=== PATIENT | male | born 1955 | race Two or more races ===

== ENCOUNTER 2023-02-24 06:15 | Day surgery (SDC) | payer OTHER ==
[~2023-02-24] VITALS: Ht 172.7 cm; Wt 81.6 kg
== END 2023-02-24 16:50 | disposition home or self-care (01) ==
LOC: CIR.AMB 06:15 → EDBD 09:45 → CIR.AMB 09:45
PROVIDERS: ATTEND Colon & Rectal Surgery
DX: K57.30 Diverticulosis of large intestine without perforation or abscess without bleeding (principal); D37.8 Neoplasm of uncertain behavior of other specified digestive organs; K62.89 Other specified diseases of anus and rectum; K64.2 Third degree hemorrhoids; Z20.822 Contact with and (suspected) exposure to COVID-19